=== PATIENT | male | born 2000 | race Two or more races ===

== ENCOUNTER 2024-04-02 17:12 | Inpatient (IN) | payer SELFPAY ==
[~2024-04-02] VITALS: Ht 152.4 cm; Wt 51.3 kg
[2024-04-02 17:16] VITALS: O2SAT 100
[2024-04-02 18:00] LABS: BASOPHILS % 0.4 % (0.0-2.0); EOSINOPHILS % 0.2 % (0.0-5.0); HEMATOCRIT. 41.4 % (42.0-52.0); HEMOGLOBIN. 14.5 g/dL (14.0-18.0); LYMPHOCYTES % 15.1 % (20.0-50.0); MEAN CORPUSCULAR HEMOGLOBIN 29.6 pg (28.0-32.0); MEAN CORPUSCULAR HGB CONC 34.9 g/dL (31.0-37.0); MEAN CORPUSCULAR VOLUME 84.7 fL (80.0-94.0); MONOCYTES % 10.3 % (2.0-8.0); PLATELET 293 x1000/uL (130-400); RED BLOOD CELL COUNT 4.89 mill/uL (4.7-6.1); RED CELL DISTRIBUTION WIDTH 13.2 % (11.6-14.6)
[2024-04-02 18:05] LABS: CHLORIDE 105 mEq/L (98-107); POTASSIUM 3.5 mEq/L (3.5-5.1); SODIUM 140 mEq/L (136-145)
[2024-04-02 18:06] LABS: CALCIUM 9.8 mg/dL (8.7-10.4); CARBON DIOXIDE 28 mEq/L (21-32)
[2024-04-02 18:11] LABS: CREATININE 0.7 mg/dL (0.6-1.3); GLUCOSE 94 mg/dL (70-105); UREA NITROGEN BLOOD 9 mg/dL (9-23)
[2024-04-02 18:12] LABS: TROPONIN I HIGH SENSITIVITY < 4 ng/L (3.0-53)
[2024-04-02 18:13] LABS: CARBAMAZEPINE < 0.4 ug/mL (4-12); ETHANOL BLOOD < 10 mg/dL (<10); PHENOBARBITAL < 3.0 ug/mL (15.0-40.0); PHENYTOIN < 2.0 ug/mL (10-20); VALPROIC ACID < 3.0 ug/mL (50-100)
[2024-04-02] MEDS: SODIUM CHLORIDE 0.9% 1,000 ML IV ONE ×3 (18:26→23:36)
[2024-04-02] MEDS: LEVETIRACETAM 1000MG PREMIX 100 ML IV ONE (18:26)
[2024-04-02 21:35] LABS: CLARITY URINE CLEAR (CLEAR); COLOR URINE YELLOW (YELLOW); GLUCOSE URINE NEGATIVE (NEGATIVE); KETONES URINE 1+ (NEGATIVE); LEUKOCYTE ESTERASE URINE NEGATIVE (NEGATIVE); NITRITE URINE NEGATIVE (NEGATIVE); OCCULT BLOOD URINE NEGATIVE (NEGATIVE); PROTEIN URINE NEGATIVE (NEGATIVE); SPECIFIC GRAVITY URINE 1.024 (1.005-1.030); UROBILINOGEN URINE 0.2 E.U./dL (0.2-1.0)
[2024-04-02 21:47] LABS: *AMPHETAMINES SCREEN URINE NEGATIVE (NEGATIVE); *BARBITURATES SCREEN URINE NEGATIVE (NEGATIVE); *BENZODIAZEPINES SCREEN URINE PRESUMPTIVE POSITIVE (NEGATIVE); *COCAINE SCREEN URINE NEGATIVE (NEGATIVE); CANNABINOID URINE SCREEN NEGATIVE (NEGATIVE); ECSTASY MDMA SCREEN URINE NEGATIVE (NEGATIVE); METHADONE URINE SCREEN NEGATIVE (NEGATIVE); OPIATES URINE SCREEN NEGATIVE (NEGATIVE); PHENCYCLIDINE URINE SCREEN NEGATIVE (NEGATIVE)
[2024-04-03] VITALS (7 sets, daily range): BP systolic 92–119; BP diastolic 41–59; PULSE 64–79; RESP 18–20; TEMP 36.22512–36.61404; O2SAT 96–100
[2024-04-03] MEDS: LEVETIRACETAM 500MG PREMIX 100 ML IV SCH (08:40)
[2024-04-03] MEDS ORDERED: LEVETIRACETAM 500MG in NACL 100ML PREMIX IV SCH (09:00)
[2024-04-03 10:04] LABS: CHLORIDE 108 mEq/L (98-107); POTASSIUM 3.4 mEq/L (3.5-5.1); SODIUM 140 mEq/L (136-145)
[2024-04-03 10:05] LABS: BASOPHILS % 0.4 % (0.0-2.0); CALCIUM 9.5 mg/dL (8.7-10.4); CARBON DIOXIDE 23 mEq/L (21-32); EOSINOPHILS % 0.3 % (0.0-5.0); HEMATOCRIT. 41.7 % (42.0-52.0); HEMOGLOBIN. 14.1 g/dL (14.0-18.0); LYMPHOCYTES % 25.5 % (20.0-50.0); MEAN CORPUSCULAR HEMOGLOBIN 29.2 pg (28.0-32.0); MEAN CORPUSCULAR HGB CONC 33.8 g/dL (31.0-37.0); MEAN CORPUSCULAR VOLUME 86.3 fL (80.0-94.0); MEAN PLATELET VOLUME 8.8 fl (7.4-10.4); MONOCYTES % 6.8 % (2.0-8.0); PLATELET 280 x1000/uL (130-400); RED BLOOD CELL COUNT 4.82 mill/uL (4.7-6.1); RED CELL DISTRIBUTION WIDTH 13.3 % (11.6-14.6); WHITE BLOOD COUNT 5.9 x1000/uL (4.5-11.0)
[2024-04-03 10:10] LABS: CREATININE 0.7 mg/dL (0.6-1.3); GLUCOSE 83 mg/dL (70-105); UREA NITROGEN BLOOD 6 mg/dL (9-23)
[2024-04-03 10:12] LABS: ALANINE AMINOTRANSFERASE 13 IU/L (10-49); ASPARTATE AMINOTRANSFERASE 55 IU/L (<34); BILIRUBIN TOTAL 1.3 mg/dL (0.1-1.0)
[2024-04-03] MEDS ORDERED: ACETAMINOPHEN 325MG TABLET PO PRN ×2 (11:45)
[2024-04-03] MEDS ORDERED: DOCUSATE SODIUM 100MG CAPSULE PO PRN (11:45)
[2024-04-03] MEDS ORDERED: ONDANSETRON HCL 4MG/2ML INJ IV PRN (11:45)
[2024-04-03] MEDS ORDERED: IPRATROPIUM/ALBUTEROL 0.5-3(2.5)MG/3ML NEB HHN PRN (11:45)
[2024-04-03] MEDS ORDERED: CLONIDINE 0.1MG TABLET PO PRN (11:45)
[2024-04-04] VITALS: BP 98/39; PULSE 61; RESP 18; TEMP 36.50292; O2SAT 97
[2024-04-04 04:00] VITALS: BP 108/83; PULSE 98; RESP 18; TEMP 36.72516; O2SAT 100
[2024-04-04 08:00] VITALS: BP 103/62; PULSE 77; RESP 19; TEMP 36.3918; O2SAT 98
[2024-04-04 12:00] VITALS: BP 110/69; PULSE 82; RESP 19; TEMP 36.50292; O2SAT 98
[2024-04-04 16:00] VITALS: BP 114/63; PULSE 80; RESP 18; TEMP 36.05844; O2SAT 97
[2024-04-04 20:00] VITALS: BP 104/54; PULSE 57; RESP 18; TEMP 37.28076; O2SAT 98
[2024-04-05] VITALS: BP 89/43; PULSE 49; RESP 18; TEMP 36.78072; O2SAT 96
[2024-04-05 04:00] VITALS: PULSE 48; RESP 18; TEMP 37.05852; O2SAT 97
[2024-04-05 08:00] VITALS: BP 129/70; PULSE 86; RESP 20; TEMP 36.6696; O2SAT 100
[2024-04-05] MEDS ORDERED: HALOPERIDOL LACTATE 5MG/ML VIAL IM NR (11:43)
[2024-04-05] MEDS ORDERED: DIPHENHYDRAMINE 50MG/ML VIAL IM NR (11:43)
[2024-04-05 11:59] VITALS: BP 118/79; PULSE 88; RESP 18; TEMP 36.72516; O2SAT 98
[2024-04-05] MEDS ORDERED: OLANZAPINE 5MG TABLET ODT PO PRN (12:00)
[2024-04-05] MEDS ORDERED: HALOPERIDOL LACTATE 5MG/ML VIAL IM PRN (12:00)
[2024-04-05] MEDS: LORAZEPAM 2MG/ML INJ IV PRN (14:14)
[2024-04-05 16:00] VITALS: BP 95/70; PULSE 70; RESP 20; TEMP 36.44736; O2SAT 98
[2024-04-05 20:31] VITALS: BP 119/68; PULSE 95; RESP 16; TEMP 36.55848
[2024-04-05] MEDS: OLANZAPINE 5MG TABLET PO SCH (21:00)
== END 2024-04-06 13:15 | disposition left against medical advice (07) | DRG 53 ==
LOC: ER 17:12 → EDBEDREQ 23:05 → 7WST 04-03 06:03
PROVIDERS: ADMIT Internal Medicine; ATTEND Internal Medicine
PROC: 4A10X4Z Monitoring of Central Nervous Electrical Activity, External Approach (ICD-10-PCS; principal; 2024-04-03)
DX: R56.9 Unspecified convulsions (principal); E87.6 Hypokalemia; F39 Unspecified mood [affective] disorder; Z53.21 Procedure and treatment not carried out due to patient leaving prior to being seen by health care provider
CPT/HCPCS: 36415; 80048; 80053; 80156; 80165; 80184; 80185; 80305; 80320; 81003; 84484; 85025; 93005; 97166; 99285; J1630; J1953; J2060; J7030; G0480